=== PATIENT | female | born 1985 | race Caucasian/White ===

== ENCOUNTER 2018-08-19 12:15 | Emergency (ER) | payer OTHER ==
[~2018-08-19] VITALS: Ht 165.1 cm; Wt 69.9 kg
--- NOTE | 2018-08-19 12:35 | NUR ---
DR MADRIGAL AT BEDSIDE FOR EVAL.
[2018-08-19] MEDS ORDERED: PANTOPRAZOLE 40 MG VIAL ONE (12:40)
[2018-08-19] MEDS ORDERED: ONDANSETRON HCL/PF 4 MG/2 ML VIAL ONE (12:41)
--- NOTE | 2018-08-19 12:48 | NUR ---
PT STATES NO CHANCE OF BEING . RADIOLOGY AWARE.
[2018-08-19 12:52] LABS: BASOPHILS % (AUTO) 0.3 % (0.0-2.0); EOSINOPHILS % (AUTO) 0.3 % (0.0-6.0); HEMATOCRIT 38 % (33-45); HEMOGLOBIN 12.9 g/dL (11.5-14.8); LYMPHOCYTES # (AUTO) 0.9 /CMM (0.8-4.8); MEAN CORPUSCULAR HGB CONC 34 g/dl (31.0-36.0); MEAN CORPUSCULAR VOLUME 87 fL (82-100); MONOCYTES # (AUTO) 0.3 /CMM (0.1-1.30); MONOCYTES % (AUTO) 2.8 % (2.0-12.0); NEUTROPHILS # (AUTO) 8.5 /CMM (1.8-8.9); NEUTROPHILS % (AUTO) 87.6 % (43.0-81.0); PLATELET COUNT (AUTO) 234 /CMM (150-450); RED BLOOD CELL COUNT(AUTO) 4.35 MIL/uL (4.0-5.2); WHITE BLOOD COUNT (AUTO) 9.7 K/uL (4.3-11.0)
--- NOTE | 2018-08-19 12:54 | NUR ---
RADIOLOGY AT BEDSIDE FOR CHEST XRAY.
[2018-08-19 12:59] LABS: CALCIUM, SERUM 8.9 mg/dL (8.5-10.1); CREATININE 0.7 mg/dL (0.6-1.3); POTASSIUM 3.6 mmol/L (3.5-5.1)
[2018-08-19] MEDS ORDERED: PANTOPRAZOLE 40 MG VIAL IV ONE (13:00)
[2018-08-19] MEDS ORDERED: IV NS 0.9% 1,000 ML BAG IV ONE (13:00)
[2018-08-19] MEDS ORDERED: ONDANSETRON HCL/PF 4 MG/2 ML VIAL IVP ONE (13:00)
[2018-08-19 13:06] LABS: BILIRUBIN,DIRECT 0.1 mg/dL (0.0-0.2); BILIRUBIN,TOTAL 0.4 mg/dL (0.2-1.0)
--- NOTE | 2018-08-19 13:15 | NUR ---
U/S TECH AT BEDSIDE FOR GALLBLADDER ULTRASOUND.
--- NOTE | 2018-08-19 13:35 | NUR ---
PT STILL UNABLE TO PROVIDE URINE SAMPLE AT THIS TIME. ABDOMINAL PAIN GETTING WORST STATES PT. ERMD AWARE.
[2018-08-19] MEDS ORDERED: KETOROLAC TROMETHAMINE INJ 30 MG/ML VIAL ONE (13:50)
--- NOTE | 2018-08-19 13:59 | NUR ---
CALLED [facility] FOR IMAGE TO BE READ
[2018-08-19] MEDS ORDERED: KETOROLAC TROMETHAMINE INJ 30 MG/ML VIAL IV ONE (14:00)
--- NOTE | 2018-08-19 14:24 | NUR ---
Patient discharged to home in stable condition. Written and verbal after care instructions given. Patient verbalizes understanding of instruction.IV removed. Catheter intact and site benign. Pressure and 4x4 applied to site. No bleeding noted.
[2018-08-19 14:25] VITALS: BP 140/87
== END 2018-08-19 14:25 | disposition home or self-care (01) ==
LOC: ER 12:17
DX: K80.70 Calculus of gallbladder and bile duct without cholecystitis without obstruction (principal); R11.10 Vomiting, unspecified
CPT/HCPCS: 36415; 71045; 76705; 80048; 80076; 83690; 85025; 93005; 96361; 96374; 96375; 99284; C9113; J1885; J2405; J7030

== ENCOUNTER 2020-05-02 10:44 | Emergency (ER) | payer OTHER ==
[~2020-05-02] VITALS: Ht 165.1 cm; Wt 71.2 kg
--- NOTE | 2020-05-02 11:14 | NUR ---
C/O RT UPPER ABD PAIN RADIATING TO EPIGASTRIC AREA. RECENTLY DX WITH GALLSTONES +NAUSEA. PT AAOX4, VSS. RR EVEN & UNLABORED. DENIES CP, SOB, DIZZINESS AT THIS TIME. PT SEEN & EVAL'D BY DR. WHITE. WILL CONT TO MONITOR.
[2020-05-02 11:18] LABS: BASOPHILS % (AUTO) 0.2 % (0.0-2.0); EOSINOPHILS % (AUTO) 0.2 % (0.0-6.0); HEMATOCRIT 40 % (33-45); HEMOGLOBIN 13.4 g/dL (11.5-14.8); LYMPHOCYTES # (AUTO) 1.2 /CMM (0.8-4.8); LYMPHOCYTES % (AUTO) 12.5 % (20.0-44.0); MEAN CORPUSCULAR HGB CONC 34 g/dl (31.0-36.0); MEAN CORPUSCULAR VOLUME 86 fL (82-100); MONOCYTES # (AUTO) 0.5 /CMM (0.1-1.30); MONOCYTES % (AUTO) 4.7 % (2.0-12.0); NEUTROPHILS # (AUTO) 8.2 /CMM (1.8-8.9); NEUTROPHILS % (AUTO) 82.4 % (43.0-81.0); PLATELET COUNT (AUTO) 255 /CMM (150-450); RED BLOOD CELL COUNT(AUTO) 4.59 MIL/uL (4.0-5.2); WHITE BLOOD COUNT (AUTO) 9.9 K/uL (4.3-11.0)
[2020-05-02] MEDS ORDERED: ONDANSETRON HCL/PF 4 MG/2 ML VIAL ONE (11:23)
[2020-05-02] MEDS ORDERED: MORPHINE SULFATE INJ 4 MG/ML DISP.SYRIN ONE ×3 (11:23→16:58)
[2020-05-02 11:27] LABS: CALCIUM, SERUM 9.5 mg/dL (8.5-10.1); CREATININE 0.8 mg/dL (0.6-1.3); POTASSIUM 3.4 mmol/L (3.5-5.1)
[2020-05-02] MEDS ORDERED: ONDANSETRON HCL/PF 4 MG/2 ML VIAL IVP ONE (11:30)
[2020-05-02] MEDS ORDERED: MORPHINE SULFATE INJ 2 MG/ML DISP.SYRIN IV ONE ×3 (11:30→17:00)
[2020-05-02] MEDS ORDERED: IV NS 0.9% 1,000 ML BAG IV ONE (11:30)
[2020-05-02] MEDS ORDERED: CEFTRIAXONE 1GM BAG (ER ONLY) 1 GM/50 ML PIGGYBACK IV ONE (11:30)
[2020-05-02 11:33] LABS: ALBUMIN 4.3 g/dL (3.4-5.0); BILIRUBIN,DIRECT 0.1 mg/dL (0.0-0.2); BILIRUBIN,TOTAL 0.6 mg/dL (0.2-1.0); TOTAL PROTEIN, SERUM 8.9 g/dL (6.4-8.2)
[2020-05-02] MEDS ORDERED: CEFTRIAXONE 1GM BAG (ER ONLY) 50 ML IV ONE (11:36)
[2020-05-02 11:42] LABS: BILIRUBIN,URINE NEGATIVE (NEGATIVE); COLOR,URINE YELLOW (YELLOW); LEUKOCYTE ESTERASE ,URINE SMALL (NEGATIVE); NITRITE, URINE NEGATIVE (NEGATIVE); PROTEIN,URINE NEGATIVE (NEGATIVE); UGLUCOSE NEGATIVE (NEGATIVE)
[2020-05-02 11:46] LABS: BACTERIA,URINE Few /HPF (None Seen); RBC,URINE 0-2 /HPF (0-2); SQUAMOUS EPITHELIAL CELL,UR Few /HPF (None Seen)
[2020-05-02] MEDS ORDERED: METR-147 PO (12:30)
[2020-05-02] MEDS ORDERED: CIPR500T5 PO (12:30)
[2020-05-02] MEDS ORDERED: HYDR-3972 PO (12:30)
[2020-05-02] MEDS ORDERED: PANT40TA49 PO (12:30)
--- NOTE | 2020-05-02 12:48 | NUR ---
ER ADMITTING STILL TRYING TO GET INTO CONTACT WITH [facility]. CALLS SENT TO A FAX NUMBER.
--- NOTE | 2020-05-02 12:52 | NUR ---
CALLED GENERAL SURGERY JOINTER OPERATOR
--- NOTE | 2020-05-02 13:05 | NUR ---
CALLED NURSING FLOOR CARE TECHNICIAN FOR M/S BED.
--- NOTE | 2020-05-02 13:40 | NUR ---
PT STILL C/O ABD PAIN 10/23. MEDICATED PER ERMD ORDER. WILL CONT TO MONITOR.
--- NOTE | 2020-05-02 13:50 | NUR ---
SPOKE TO [facility]. CLINICALS AND FACESHEET FAXED. AWAITING MD TO .
--- NOTE | 2020-05-02 14:13 | NUR ---
CANCELLED DIRECTOR OF RETAIL ANALYTICS SURGERY
--- NOTE | 2020-05-02 14:13 | NUR ---
FAXED CLINICALS TO JAMESON FROM [facility]
--- NOTE | 2020-05-02 14:28 | NUR ---
JAMESON FROM [facility] CALLED ASKING ABOUT PT HEIGHT AND WEIGHT
--- NOTE | 2020-05-02 15:23 | NUR ---
PT SITTING UP & STS FEELING MUCH BETTER. RUQ ABD PAIN 10 & FATOU WELL. WILL CONT TO MONITOR.
--- NOTE | 2020-05-02 17:06 | NUR ---
MEDICATED FOR PAIN PER ERMD ORDER, PT FATOU WELL.
--- NOTE | 2020-05-02 18:15 | NUR ---
CALLED NURSING PRINTING SIGN MACHINE OPERATOR FOR M/S BED.
--- NOTE | 2020-05-02 19:02 | NUR ---
TRANSFER INFO: PT GOING TO [facility], ACCEPTED BY DR TAYLOR, GOING TO ROOM 210B, RN FOR REPORT [phone], ETA 2000 HOURS [facility]
--- NOTE | 2020-05-02 19:05 | NUR ---
REC'D REPORT FROM VASQUEZ QUIROS FOR [facility]
--- NOTE | 2020-05-02 19:16 | NUR ---
ATTEMPTED TO GIVE REPORT TO [facility]. RN IN HUDDLE. AWAITING CALL BACK
--- NOTE | 2020-05-02 20:00 | NUR ---
ATTEMPTED TO GIVE REPORT AT [facility] FOR A SECOND TIME. RN NOT AVAILABLE
--- NOTE | 2020-05-02 20:18 | NUR ---
SPOKE TO [facility]. AMBULANCE NEW ETA IS 30 MIN
--- NOTE | 2020-05-02 20:29 | NUR ---
GAVE REPORT TO VASQUEZ NINA FOR [facility]DE[facility]
[2020-05-02 21:05] VITALS: BP 129/80
--- NOTE | 2020-05-02 21:06 | NUR ---
GAVE REPORT TO EMS AND GAVE TRANSFER PAPERWORK
== END 2020-05-02 21:05 ==
LOC: ER 10:48
DX: K80.10 Calculus of gallbladder with chronic cholecystitis without obstruction (principal); Z20.822 Contact with and (suspected) exposure to COVID-19; Z82.49 Family history of ischemic heart disease and other diseases of the circulatory system
CPT/HCPCS: 36415; 71045; 76705; 80048; 80076; 81001; 83690; 84703; 85025; 87081; 87086; 87426; 96365; 96375; 96376; 99291; C9803; J0696; J2270 ×3; J2405